=== PATIENT | female | born 1945 | race Caucasian/White ===

== ENCOUNTER 2020-01-04 11:12 | Outpatient (REF) | payer SELFPAY | END 2020-01-04 11:13 | disposition home or self-care (01) | LOC: HO.HAP 11:12 | PROVIDERS: PCP Family Medicine; Visit Provider Family Medicine | DX: Z46.1 Encounter for fitting and adjustment of hearing aid (principal) | CPT/HCPCS: V5267 ==

== ENCOUNTER 2020-05-04 13:01 | Outpatient (REF) | payer MEDICARE, SELFPAY ==
--- NOTE | 2020-05-05 11:27 | MHC.AU.P13 ---
Adult Audiological Evaluation Date of Visit: 05/04/20 Reason for Appointment: Audiological evaluation to monitor the status of Ms. Niño's hearing loss. She has a known bilateral sensorineural hearing loss and uses hearing aids. She notes that her hearing seems to be gradually getting worse. She denies any changes to her medical history. Previous Hearing Test Results: [facility], 10/13/2018- Mild sloping to severe sensorineural hearing loss bilaterally. Medical History: Medical History: Diabetes, High Blood Pressure Medical History: High cholesterol Hearing Instrument History- Right Ear: Disk Recoater: Phonak Model: Virto V70-312 canal Serial Number: [id number] Battery Size: 312 Repair Warranty: 04/09/2018 Loss and Damage Warranty: 04/09/2018 Dispensed By: [facility] Date of Fittin03/16/2015 Hearing Instrument History- Left Ear: Disk Recoater: Phonak Model: Virto V70-312 canal Serial Number: [id number] Battery Size: 312 Warranty: 04/09/2018 Loss and Damage Warranty: 04/09/2018 Dispensed By: [facility] Date of Fittin03/16/2015 Otoscopy: Right Ear: Wax guard in canal, removed with suction. Otherwise clear canal Left Ear: Unremarkable Hearing Evaluation: Transducer(s) Used: Insert Earphones, Bone Conduction Method: Conventional Audiometry Stimuli Used: Pure Tones Right Ear: Description of Hearing: Mild sloping to profound sensorineural hearing loss from 250-8000 Hz. Left Ear: Description of Hearing: Mild sloping to severe sensorineural hearing loss from 250-8000 Hz. Speech Recognition Threshold (SRT): Method Used: Monitored Live Voice Stimuli Used: Spondee Words Right Ear: 40 dBHL Left Ear: 40 dBHL Word Discrimination: Method: Recorded Lists Word Lists Used: NU-6 Right Ear: 84% at 80 dBHL Left Ear: 84% at 80 dBHL Comparison: Compared to the most recent evaluation: Hearing is stable. Word discrimination scores have decreased bilaterally. Compared to most recent evaluation: Previous scores were 96% at 80 dBHL in the right ear and 92% at 80 dBHL in the left ear. Recommendations: Audiological re-evaluation in one year. Hearing aid maintenance performed today. Diagnosis: Primary Diagnosis: H90.3 Bilateral Sensorineural Hearing Loss Services Performed: Comprehensive Audiological Evaluation (CPT 61082) Signature: Provider: Fadi Moss, CCC-A
== END 2020-05-04 13:02 | disposition home or self-care (01) ==
LOC: HO.SH 13:01
PROVIDERS: Visit Provider Family Medicine
DX: H90.3 Sensorineural hearing loss, bilateral (principal)
CPT/HCPCS: 92557

== ENCOUNTER 2024-08-11 08:41 | Outpatient (AMB) | payer MEDICARE, SELFPAY ==
--- NOTE | 2024-08-11 08:56 | MHC.OFFVIS ---
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 Patient states she AFIB and has pacemaker(set at 60). States pacemaker kicks in about 2-3am and last for few hours. Has had few occasions of waking up gasping for air. Lives alone and not sure about any witnessed episodes. Accompanied by: Self / Same As Patient Allergies No Known Allergies (No Known Allergies*) Allergy (Verified 08/11/24 09:02) HPI Comments Details: 79 year old female presents for LORETO evaluation referred to us by her PCP Dr. Mcfarlane. PSG she has CHF and AFib Labs requested from [facility] She has a h/o AFIB 2-3x a month at 2am and continues for 1 hour she will take a metoprolol, she has a pacemaker in place and set to 60. She continues to wake up daily gasping for air, not sure of any witnessed apneas. She snores loudly per her daughter and grinds her teeth, and wakes up with morning headaches and takes tylenol as needed. BP 112/56, today and typically runs high. 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 RLS: She has burning, numbness, 'snake like, creepy crawly' sensation bilaterally in her legs. It keeps her up at night, she stretches the legs and paces at night. Is being followed by PT for r. hip pain by HANSA, marino toe l. foot, has gait and balance issues uses a cane. Memory is poor at baseline, she gets distracted, loses concentration, and has word finding difficulties. She uses lists and writes things down, she wears her hearing aids. Diet is okay, trying to lose weight. Her A1c is down to 6, now. Does not smoke, she drinks one glass (cocktail) on the weekends. FH + for dementia sister 79, started at 69. Brother stroke at 70. Sister 75 Lyme Disease. [facility] Medical History Pacemaker Type 2 diabetes mellitus Osteoporosis HTN (hypertension) Hyperlipidemia type II Hard of hearing Atrial fibrillation Surgical History History of total left knee replacement Hx of cholecystectomy Family History Sister Atrial fibrillation Congestive heart failure Father Diabetes type 2 Lung neoplasm Physical Exam Vital Signs: Last Vital Signs Pulse 60 08/11/24 08:57 BP 112/56 L 08/11/24 08:57 Pulse Ox 99 08/11/24 08:57 Oxygen Delivery Method Room Air 08/11/24 08:57 BMI result Body Mass Index 38.0 Const General: cooperative, comfortable and no acute distress Nutritional Appearance: obese Orientation/consciousness: patient oriented x3 HEENT Ears: hearing grossly normal bilaterally (hearing aids) Face and sinus: Yes face symmetric Throat: Yes uvula midline and Yes other (Mallampti score 2) Eyes Pupils: Equal, round and reactive pupils present Resp Effort & Inspection: normal respiratory effort and able to speak in complete sentences Neuro General: patient oriented x3 and moves all extremities (slowly) Cranial nerves: Yes Facial sensation intact/muscles of mastication intact, Yes Equal, round and reactive pupils present, Yes Normal accommodation reflex present, Yes Normal facial strength present, Yes Midline tongue present, Yes Ability to bilaterally rotate head present and Yes Ability to bilaterally elevate shoulders present Cognition (Neuro): normal cognition Gait exam (Neuro): Assistive device used (cane) Motor exam (neuro): 5/5 motor strength present throughout and Normal motor muscle tone present throughout Coordination: pokqzy-an-dlxy test normal Psych Appearance: grossly normal Speech and movement: Slowed movement present (Neuro) Affect: normal affect Attitude: cooperative Thought process: Normal thought process present Thought content: Normal thought content present Assessment & Plan Assessment & Plan (1) Sleep difficulties: Code(s): G47.9 - Sleep disorder, unspecified Category: Medical (2) Excessive daytime sleepiness: Code(s): G47.19 - Other hypersomnia Category: Medical (3) RLS (restless legs syndrome): Code(s): G25.81 - Restless legs syndrome Category: Medical (4) Anemia: Code(s): D64.9 - Anemia, unspecified Category: Medical Qualifiers: Anemia type: iron deficiency Iron deficiency anemia type: unspecified iron deficiency Qualified Code(s): D50.9 - Iron deficiency anemia, unspecified Plan PSG to r/o apnea she has afib, may also send for PSG. Labs to r/o deficiencies RLS? PLMD? Bruxism? Orders: Orders Ferritin Today D64.9 - Anemia, unspecified, G47.19 - Other hypersomnia Methylmalonic Acid Today D64.9 - Anemia, unspecified, G47.19 - Other hypersomnia, G47.9 - Sleep disorder, unspecified, R53.83 - Other fatigue TSH reflex Free T4 Today D64.9 - Anemia, unspecified, G47.19 - Other hypersomnia Complete Blood Count no Diff Today D64.9 - Anemia, unspecified, G47.19 - Other hypersomnia RT PSG in-lab sleep study Today G47.19 - Other hypersomnia Homocysteine Today D64.9 - Anemia, unspecified, G47.19 - Other hypersomnia, G47.9 - Sleep disorder, unspecified, R53.83 - Other fatigue Comprehensive Met. Panel Today D64.9 - Anemia, unspecified, G47.19 - Other hypersomnia Vitamin B12 and Folate Today D64.9 - Anemia, unspecified, G47.19 - Other hypersomnia Vitamin D 25-OH Total Today D64.9 - Anemia, unspecified, G47.19 - Other hypersomnia Patient Instructions: Sleep Hygiene provided: set a scheduled bedtime and wake time to help regulate the circadian rhythm and balance the release of pituitary hormones. Sleep in a dark room, temperatures below 68 degrees, and no devices n bed. Limit caffeinated products 6 hours prior to bed, and limit fluids 2-4 hours prior to bed. Gentle night yoga, diffusing essential oils, and playing soft music can be relaxing. Coding Level of Care Code New Pt Level 4 (29856) Diagnoses Sleep difficulties G47.9 Excessive daytime sleepiness G47.19 RLS (restless legs syndrome) G25.81 Iron deficiency anemia, unspecified iron deficiency anemia type D50.9 Anemia type: iron deficiency Iron deficiency anemia type: unspecified iron deficiency Time Spent (min) 30 Comment Evaluation of Baseline Sleep Questionnaire Difficulty falling asleep: No Difficulty staying asleep?: Yes Number of arousals: 4-6 bathroom Snoring: Yes Witnessed apneas: No (does not know as she lives alone) Gasping arousals: Yes (occasionally for AFIB- 2-3 x a month) Nocturia: Yes (4-6) GERD: Yes (managed with diet and elevation of bed.) Vivid dreams: Yes Acting out dreams: No Abnormal behavior in sleep: No Abnormal movements in sleep: Yes (leg kicking ) Morning headaches: Yes Excessive daytime sleepiness: Yes Daytime naps: Yes Restless legs: Yes Hallucinations: No Sleep paralysis: No Drop attacks: No Sleep Study: No CPAP: No
[2024-08-11 08:57] VITALS: BP 112/56; PULSE 60; O2SAT 99; BMI 38.0
--- OUTSIDE RECORDS SUMMARY | 2024-08-11 09:08 | XMS_ITS | Patient Health Record ---
Author Organization [facility] Address [address] [place] [address] Care Team Providers Care Dental Therapist Name Role Phone Pj Stapleton MD Primary Care Provider Chase Christie Unavailable [phone] Reason For Referral No Information Medications Medication SIG (Take, Route, Fr equency, Duration) Notes Start Date End Date Status Simvastatin Active Lisinopril Active Physical Therapy . . . 2-3x/week for 3-4 weeks 04/2014 Active Ibuprofen 800 MG 1 tablet every Orall y Three times a day for 30 days 03/28/2014 Not-Taki ng Keflex 500 MG 1 capsule Orally jacqueline ry 12 hrs for 14 days 03/28/2014 Not-Taking Vitamin D Active Vitamin C Active Ibuprofen 200 MG 1 tablet as needed O rally every 6 hrs Active Aspirin 81 MG Orally Active Social History Tobacco use other than smoking: Question Answer Notes Are you an other tobacco user? No Problems Problem Type SNOMED Code ICD Code Onset Dates Problem Status W/U Status Risk Notes Problem Disorder of joint of ankle and/or foot (642922582) Arthritis - Degenerative (719.97) Active confirmed Problem Hallux valgus (745811190) Hallux Valgus (735.0) Active confirmed Problem Hammer toe (777001868) Hammer toe (735.4) Active confirmed Problem Pain in limb (27936248) Pain in Limb (729.5) Active confirmed Plan Of Treatment Pending Test Test Name Order Date X ray : Foot, right 2V 03/21/2014 X ray : Foot, right 2V 04/18/2014 X ray : Foot, right 2V 04/27/2014 X ray : Foot, right 2V 05/11/2014 X ray : Foot, right 2V 05/27/2014 X ray : Foot, right 2V 06/29/2014 92162- Short Leg Cast 04/27/2014 90323- Short Leg Cast 05/11/2014 Insurance Providers Payer Name Payer Address Payer Phone Subscriber Number Group Number Insured Name Patient Relationship to Insured Coverage Start Date Coverage End Date [employer] 65 Medicare Preferred [address] [place] [address] [id number] Vandana Niño Self - patient is the insured Medical (General) History Medical History History ICD Code Arthritis Diabetic Gall bladder problems Chicken pox Measles Mumps Hypertension Scarlet fever Sciatica Joint implants/screws Surgical History Surgery Date(Month/Year) knee replacement 10/18/2012 cholecystectomy 09/2004 bunionectomy & hammertoe right foot 04/14 Hospitalization History Reason Date(Month/Year) [facility] - Bunionectomy & Hammer toe right MTPJ 04/14/14
== END 2024-08-11 10:01 | disposition home or self-care (01) ==
LOC: HO.HSMS 08:42
PROVIDERS: PCP Internal Medicine; Visit Provider Physician Assistant Medical
DX: G47.9 Sleep disorder, unspecified (principal); G47.19 Other hypersomnia; G25.81 Restless legs syndrome; D50.9 Iron deficiency anemia, unspecified
CPT/HCPCS: 99204

== ENCOUNTER → 2024-08-11 08:41 | Outpatient (BNVA) | payer MEDICARE, SELFPAY | PROVIDERS: PCP Internal Medicine; Visit Provider Physician Assistant Medical | DX: G47.9 Sleep disorder, unspecified (principal); G47.19 Other hypersomnia; G25.81 Restless legs syndrome; D50.9 Iron deficiency anemia, unspecified | CPT/HCPCS: 99202 ==

== ENCOUNTER → 2024-08-24 20:30 | Outpatient (REF) | payer MEDICARE, SELFPAY | LOC: HO.SL 20:30 | PROVIDERS: PCP Internal Medicine; Visit Provider Physician Assistant Medical | DX: G47.30 Sleep apnea, unspecified (principal); G47.19 Other hypersomnia | CPT/HCPCS: 95810 ==

== ENCOUNTER → 2024-08-24 20:30 | Outpatient (BNV) | payer MEDICARE, SELFPAY | PROVIDERS: PCP Internal Medicine; Visit Provider Psychiatry & Neurology Neurology | DX: G47.19 Other hypersomnia (principal) | CPT/HCPCS: 95810 ==

== ENCOUNTER 2024-11-11 10:56 | Outpatient (AMB) | payer MEDICARE, SELFPAY ==
--- NOTE | 2024-11-11 10:57 | A.OFFVIS_ITS ---
Vital Signs 11/11/24 11:00 Height 5 ft 4 in Weight 223 lb BMI 38.3 BP 126/72 Blood Pressure Location Rt brachial Position Sitting Pulse 60 Pulse Source Pulse Oximeter Pulse Oximetry (%) 98 Oxygen Delivery Method Room Air Intake Visit Reasons: 3 mnts f/u appt Intake Note: Patient presents follow up Sleep/RLS. PSG in chart(AHI-11, MOHIT-84%. APAP 5- 20cm)Compliance in chart(40/40days, >=4hrs-88%, Average usage-6hrs 27min, Med pressure-11.5, Med leaks-2.8, AHI-4.7). Accompanied by: Self / Same As Patient Allergies No Known Allergies (No Known Allergies*) Allergy (Verified 11/11/24 11:03) HPI Comments Details: 79 year old female presents for LORETO evaluation referred to us by her PCP Dr. Mcfarlane. August 2024 PSG c/w AHI is 11 and Oxygen desaturaion <88% for 8min. 09/2024-10/2024 LORETO Compliance Report reviewed with pt. Total average use 40/40 days and >4 hours is 88%. Avg use is 6 hours and 27 min. Med pressures 11.5cmH20 and Leaks 2.8cmH20 AHI is 4.7 She washes her mask, rinses hoses, changes filters, and fills reservoir with water. She has a h/o AFIB 2-3x a month at 2am and continues for 1 hour, symptoms improve after taking metoprolol. She feels better since using the cpap. Snoring and grinding has decreased her teeth. Still feels fatigued. 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 RLS: She has paresthesias, 'snake like, creepy crawly' sensation bilaterally in her legs keep her up at night, she stretches the legs and paces at night. Is being followed by PT for r. hip pain by marino SANTO, has gait and balance issues uses a cane. Memory is poor at baseline, she gets distracted, loses concentration, and has word finding difficulties. She uses lists and writes things down, she wears her hearing aids. Diet is okay, trying to lose weight, 3x week walking with her daughter. She notices pitting edema at night and wears compression stockings 2hours / day along with elevating her feet. [facility] Medical History Pacemaker Type 2 diabetes mellitus Osteoporosis HTN (hypertension) Hyperlipidemia type II Hard of hearing Atrial fibrillation Surgical History History of total left knee replacement Hx of cholecystectomy Family History Sister Atrial fibrillation Congestive heart failure Father Diabetes type 2 Lung neoplasm Physical Exam Vital Signs: Last Vital Signs Pulse 60 11/11/24 11:00 BP 126/72 11/11/24 11:00 Pulse Ox 98 11/11/24 11:00 Oxygen Delivery Method Room Air 11/11/24 11:00 BMI result Body Mass Index 38.3 Const General: cooperative, comfortable and no acute distress Nutritional Appearance: obese Orientation/consciousness: patient oriented x3 HEENT Ears: hearing grossly normal bilaterally (hearing aids) Face and sinus: Yes face symmetric Throat: Yes uvula midline and Yes other (Mallampti score 2) Eyes Pupils: Equal, round and reactive pupils present Resp Effort & Inspection: normal respiratory effort and able to speak in complete sentences Neuro General: patient oriented x3 and moves all extremities (slowly) Cranial nerves: Yes Facial sensation intact/muscles of mastication intact, Yes Equal, round and reactive pupils present, Yes Normal accommodation reflex present, Yes Normal facial strength present, Yes Midline tongue present, Yes Ability to bilaterally rotate head present and Yes Ability to bilaterally elevate shoulders present Cognition (Neuro): normal cognition Gait exam (Neuro): Assistive device used (cane) Motor exam (neuro): 5/5 motor strength present throughout and Normal motor muscle tone present throughout Coordination: [id number]-rg-mwyb test normal Psych Appearance: grossly normal Speech and movement: Slowed movement present (Neuro) Affect: normal affect Attitude: cooperative Thought process: Normal thought process present Thought content: Normal thought content present Results Reviewed Results Reviewed: August 2024 PSG AHI is 11 and Oxygen desaturaion <88% for 8min. 09/2024-10/2024 LORETO Compliance Report reviewed with pt. Total average use 40/40 days and >4 hours is 88%. Avg use is 6 hours and 27 min. Med pressures 11.5cmH20 and Leaks 2.8cmH20 AHI is 4.7 She washes her mask, rinses hoses, changes filters, and fills reservoir with water. Assessment & Plan Assessment & Plan (1) LORETO on CPAP: Comment: will send her a nasal canula as the nose pillows are not giving her a good seal. Code(s): G47.33 - Obstructive sleep apnea (adult) (pediatric) Category: Medical (2) Sleep difficulties: Code(s): G47.9 - Sleep disorder, unspecified Category: Medical (3) Excessive daytime sleepiness: Code(s): G47.19 - Other hypersomnia Category: Medical (4) RLS (restless legs syndrome): Code(s): G25.81 - Restless legs syndrome Category: Medical (5) Anemia: Code(s): D64.9 - Anemia, unspecified Category: Medical Qualifiers: Anemia type: iron deficiency Iron deficiency anemia type: unspecified iron deficiency Qualified Code(s): D50.9 - Iron deficiency anemia, unspecified Plan LORETO on cpap and compliant, continue use and >4 hours, will send her nasal canula as she is not having sufficient air intake with nose елена would like to try the NC. Labs requested from [facility]. RLS? PLMD? will continue to monitor and provide Gabapentin if amenable at next visit. MMSE memory at next f/u. Coding Level of Care Code Est Pt Level 4 (94934) Diagnoses LORETO on CPAP G47.33 Sleep difficulties G47.9 Excessive daytime sleepiness G47.19 RLS (restless legs syndrome) G25.81 Iron deficiency anemia, unspecified iron deficiency anemia type D50.9 Anemia type: iron deficiency Iron deficiency anemia type: unspecified iron deficiency
[2024-11-11 11:00] VITALS: BP 126/72; PULSE 60; O2SAT 98; BMI 38.3
== END 2024-11-11 11:38 | disposition home or self-care (01) ==
PROVIDERS: PCP Internal Medicine; Visit Provider Physician Assistant Medical
DX: G47.33 Obstructive sleep apnea (adult) (pediatric) (principal); G47.9 Sleep disorder, unspecified; G47.19 Other hypersomnia; G25.81 Restless legs syndrome; D50.9 Iron deficiency anemia, unspecified
CPT/HCPCS: 99214

== ENCOUNTER → 2024-11-11 10:56 | Outpatient (BNVA) | payer MEDICARE, SELFPAY | PROVIDERS: PCP Internal Medicine; Visit Provider Physician Assistant Medical | DX: G47.33 Obstructive sleep apnea (adult) (pediatric) (principal); G47.9 Sleep disorder, unspecified; G47.19 Other hypersomnia; G25.81 Restless legs syndrome; D50.9 Iron deficiency anemia, unspecified | CPT/HCPCS: 99212 ==